=== PATIENT | male | born 1935 | race African-American/Black ===

== ENCOUNTER 2019-01-07 11:59 | Inpatient (IN) | payer OTHER ==
[~2019-01-07] VITALS: Ht 180.3 cm; Wt 68.0 kg
[~2019-01-07 11:59] MED LIST: ASPIRIN325 PO; ATIVAN0.5 MG PO; ATORVASTATIN CA40 MG PO; CARVEDILOL12.5 MG PO; DUONEB 2.5-0.5 M3 ML INH; FLOMAX0.4 MG PO; HALDOL5 MG/1 ML IM; KEPPRA 500 MG500 M1; KEPPRA 500 MG500 M1 PO; KLOR-CON 1010 MEQ PO; LEVAQUIN 500 M500 M1 PO; OSELB75 PO; TRAZODONE HCL50 MG PO; UNICOMPLEX M TA1 TA1 PO; VALPROIC ACID250 MG PO; ZOLOFT25 MG PO
[2019-01-07 12:18] VITALS: BP 131/80
--- NOTE | 2019-01-07 12:44 | NUR ---
PT. ARRIVED ON THE UNIT AT 11:40 THIS MORNING ON A GURNEY ACCOMPANIED BY 2 AMBULANCE DRIVERS. PT. FROM [facility]. REPORT CALLED TO THIS RN BY STAFF AT [facility]. PT. IS ALLERGIC TO CIPRO AND TB SERUM. PT. UNABLE TO ANSWER QUESTIONS HE IS PROFOUNDLY HARD OF HEARING AND COULD NOT UNDERSTAND QUESTIONING. PT. HAS A PMHX OF EPILEPSY, MDD, BIPOLAR, CHF, HTN, COPD, HYPERLIPIDEMIA, DECREASED COORDINATION. HE IS A 1:1 ASSIST AND A FALL RISK DUE TO HIS INCOORDINATION. PT. HAS BEEN
[2019-01-07 20:00] VITALS: BP 155/97
--- NOTE | 2019-01-08 00:18 | NUR ---
Family emergency contact number not correct in chart, not able to notify regarding seclusion. Nursing Gem Setter and pts nurse notified.
--- NOTE | 2019-01-08 00:25 | NUR ---
ASSUMED CARE @ 19:15 ON 01/07/19, IN DAY ROOM, AMBULATES TO OTHER LOCATIONS IN THE DAY ROOM PERIODOCALY. TOOK HS MEDS WITH THICKENED LIQUIDS. DRANK ENTIRE CARTON OF LIQUID OFFERED. AMBULATING INTO OTHER PATIENTS ROOM. DIFFICULT TO REDIRECT. [place] AND DOES NOT SEEM TO UNDERSTAND BY LOOKING AT SPEAKERS FACE WHEN SPOKEN TO.
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
[2019-01-08 01:34] VITALS: BP 155/97
--- NOTE | 2019-01-08 06:00 | NUR ---
6.4 HOURS OF SLEEP OVERNIGHT
--- NOTE | 2019-01-08 10:50 | NUR ---
IN ROOM SLEEPING SOUNDLY SINCE START OF SHIFT-NO RESPONSE TO VERBAL COMMANDS,QUES FROM STAFF-WILL RESPOND TO PAINFUL STIMULI-RESPIRATIONS EVEN/REGULAR. VS OBTAINED BP 112/68 P64 R-14 02 SAT 98 PERCENT. AM MEDS NOT ADMINISTERED D/T SEDATION -MD NOTIFIED OF ABOVE AND ON UNIT TO SEE PT-NO NEW ORDERS RECEIVED
--- NOTE | 2019-01-08 15:56 | NUR ---
EDGAR was contacted by pt's sister and guardian Radha Krause [phone] Who gave SW a brief history of pt. She also explained that [facility] Padilla is telling her that since she did not pay for the days he was gone, she has to get his things and he has to leave. EDGAR informed Radha that they have to give a formal 30 day notice. Radha said she was told that by the psych doctor and given a phone number to report the facility to. EDGAR was contacted by Venus Padilla who attempted to give her [facility]'s information because they sent a referral to that facility. EDGAR asked if it was still a requirement to give 30 day notice? The attendant responded that she is letting administration handle that, and that she is assisting with pt's discharge. EDGAR explained that she cannot contact [facility] because she has not been given permission to do so from the guardian. EDGAR completed an intake assessment for pt. SW team will continue to follow pt during his stay.
[2019-01-08 19:39] VITALS: BP 178/94
--- NOTE | 2019-01-09 | NUR ---
At shift change, 1844 the pt. was in the day room sitting beside staff, and he was notably having a seizure/thrashing about and his tongue very tremulous, and eyes rolled back in his head. It lasted about 1minute.Dr. Alexis notified and ordered Ativan 1 mg. IM x 1 now and it was given. YP=593/94, oxy 98% room air, p=100, resp. 16. He was placed into his bed with staff assist and the pt. had no longer seizing.
--- NOTE | 2019-01-09 00:22 | NUR ---
The pt. was noted at 2200 having a seizure again in his bed with tongue thrashing and eyes rolled back, it lasted about 1 minute and stopped. He was med.compliant with meds. crushed in nectar thickened liquid. Dr. Alexis notified and orderd a Keppra blood level. He refused VS recheck at med. pass time. He was notably also coughing intemittently non-productive moist sounding cough. No further seizures. He was compliant with VS at 2315 and was sleeping and coughing almost continous non-productive, wheezes upper lobes bilateral. km=271/105, r=99.7 F and R=18, p=106. Nurse Practioner notified.
[2019-01-09 00:28] VITALS: BP 184/105
--- NOTE | 2019-01-09 01:02 | NUR ---
Order received for CXR in the morning and diet changed to pureed, nectar thick liquids.
[2019-01-09 06:24] VITALS: BP 151/80
[2019-01-09 09:02] VITALS: BP 132/68
[2019-01-09 09:04] VITALS: BP 156/88
--- NOTE | 2019-01-09 09:32 | NUR ---
RESISTIVE WITH TAKING AM MEDS-LIQUID KEPPRA MIXED WITH NECTAR THICK JUICE AND DID INITALLY TAKE 1-2 SWALLOWS BEFORE TIGHTLY CLOSING MOUTH AND REFUSING TO SWALLOW-SPITTING OUT MED AND JUICE.CLOSES EYES TIGHTLY-ATTEMPTED TO WRITE OUT REQUEST TO TAKE IS HIS SEIZURE MEDICATION-RAISES HAND IF TO STRIKE STAFF. DID AFTER APPROX APPROX 1 1/2 HOUR OF REAPPROACH APPEAR TO SWALLOW ALL OF JUICE. IMPULSIVE ATTEMPTING TO STAND UP ON OWN
--- NOTE | 2019-01-09 13:59 | NUR ---
HAS BEEN SOMULENT IN RECLINER IN DAYROOM-UNABLE TO BE ROUSED FOR SPEECH EVAL-DEEP,LOOSE NONPRODUCTIVE COUGH CZEAC-[id number]. DID ATTEMPT TO GET UP ON OWN X 1 -VERY HIGH FALLS RISK
--- NOTE | 2019-01-09 14:01 | NUR ---
EDGAR received a vm from Radha Krause asking her to fax a referral to [facility] for pt. EDGAR contacted [place] and received their fax number. EDGAR faxed a referral to [facility] at [phone]. EDGAR contacted Radha and provided an update. EDGAR team will continue to follow pt during his stay.
[2019-01-09 19:35] VITALS: BP 119/75
--- NOTE | 2019-01-10 04:40 | NUR ---
1909-Report received from day shift nurse and care assumed. The pt. was in bed and was alert and awake and restless at times. He had a bright affect during assessment with good eye contact. He was med. compliant and slept soundly for most of the nite, but awakened early this morning. Fall precautions and seizure precautions in place.
[2019-01-10 06:07] LABS: CALCIUM 9.5 mg/dL (8.5-10.1); CREATININE 0.8 mg/dL (0.7-1.3); POTASSIUM 4.3 mmol/L (3.5-5.1)
[2019-01-10 07:08] LABS: HEMATOCRIT 34.4 % (42.0-52.0); HEMOGLOBIN 11.3 gm/dL (14.0-18.0); MCH 30.5 pg (26.0-34.0); MCHC 32.9 g/dL (28.0-37.0); MCV 92.8 fL (80.0-100.0); RBC 3.71 mil/uL (4.50-6.00); RDW 14.9 % (10.5-14.5); WBC 7.8 thou/uL (4.0-11.0)
[2019-01-10 08:00] VITALS: BP 124/75
--- NOTE | 2019-01-10 08:10 | NUR ---
HELPED ASSISTED PT TO RECLINER CHAIR. PT BRIEF WAS WET IN BED. PT WAS ABLE TO STAND AND HELP PIVOT. PT LUNGS SOUNDED CLEAR, DIMINISHED IN BASES. PT SMILES AT NURSES, PT UNABLE TO HEAR. PT ABLE TO READ. PT HIS LEFT EYELID IS SWOLLEN, AND SCAB TO LEFT SIDE OF IT. PT NEEDED HELP WITH FEEDING AND TOOK MEDS WITHOUT RESISTANCE.
[2019-01-10 08:28] VITALS: BP 124/75
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
[2019-01-10 20:34] VITALS: BP 86/46
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
--- NOTE | 2019-01-11 12:54 | NUR ---
HAS BEEN IN DAYROOM SITTING IN W/C, HE IS ALERT AND RESPONDS AFTER YOU YELL IN HIS EAR, HE IS VERY [place], HE TOOK MEDS CRUSHED, BUT ATTEMPTS MADE TO GET HIM TO SWALLOW KEPPRA WITHOUT SUCCESS, HE IS A FEEDER TODAY AND EATS WELL. NO BEHAVIORAL ISSUES NOTED TODAY. wILL CONTINUE TO MONITOR FOR BEHAVIORS AND SAFETY.
[2019-01-11 15:19] VITALS: BP 101/60
[2019-01-11 20:00] VITALS: BP 148/70
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
--- NOTE | 2019-01-11 23:51 | NUR ---
ASSUMED CARE FROM DAY SHIFT PT RESTING IN BED , VOICED NO CONCERNS , NON VERBAL WHEN ATTEMPTED TO TALK TO PT ,. PO MEDICATION TAKEN BUT PT STARTED SPITTING HALF OF THE MEDICATION OUT. PT RESTING WELL THROUGHOUT FREQ ROUNDING, BED ALARM ON FOR SAFETY WILL CONTINUE WITH CURRENT PLAN OF CARE. AND WILL REPORT CHANGES.
[2019-01-12 09:03] VITALS: BP 119/68
--- NOTE | 2019-01-12 10:45 | NUR ---
HAS BEEN UP IN DAYROOM IN W/C, HE IS ALERT AND CHEERFUL, NO AGITATION NOTED THIS A.M. HE IS COMPLIANT WITH HIS MEDICATION THIS MORNING, HE HAS EATEN WELL WITH ASSISTANCE, ENCOURAGING FLUIDS. VERY [facility], BUT DOES RESPOND WHEN YOU SPEAK DIRECTLY IN HIS RIGHT EAR, IT WAS NOTED HE HAS A NODULE ON HIS LEFT EYELID, DID NOT NOTE ANY DRAINAGE OR REDNESS AT THIS POINT, CONTINUE TO ASSIST NEEDED, MONITOR FOR BEHAVIORS AND SAFETY ISSUES.
[2019-01-12 19:49] VITALS: BP 104/66
[2019-01-12 22:54] VITALS: BP 104/66
--- NOTE | 2019-01-12 22:59 | NUR ---
PATIENT CALM AND COOPERATIVE TONIGHT. HE SAT UP IN DINING ROOM WITH OTHERS WATCHING THE FOOT BALL GAME. HE SMILED WHEN I GREETED HIM. HE DENIES PAIN. HE'S VERY NOME. PATIENT TOOK HIS MEDS CRUSHED IN PUDDING AND HIS KEPPRA IN THICKENED LEMON WATER WITHOUT A PROBLEM. PATIENT ATE ICE CREAM ALSO FOR HS SNACK. PATIENT COMMUNICATED HE WAS SLEEPY. PATIENT IN BED NOW. HE IS COMPLIANT WITH CARES. PATIENT'S BRIEF DRY AND INTACT. BED IN LOW POSITION AND BED ALARM ON. WILL CONTINUE TO MONITOR.
[2019-01-13 08:09] VITALS: BP 119/61
[2019-01-13 10:57] VITALS: BP 119/61
--- NOTE | 2019-01-13 12:35 | NUR ---
EDGAR received a phone call from Radha asking her to return her call; Radha asked when pt can be d/c. EDGAR explained that he could today. EDGAR asked if they had heard from [facility] and she said she had; pt was denied. EDGAR encouraged Radha to contact [facility] and remind them that Medicaid pays for pt to be there so a formal 30 day notice needs to occur. She said she will. [facility] contacted EDGAR and explained that they believe pt needs an all male unit; which they do not have. SW team will continue to follow pt during his stay.
--- NOTE | 2019-01-13 13:40 | NUR ---
EDGAR received a call from Radha who said [facility] gave pt's bed away. EDGAR team contacted Ayesha with [facility] and inquired if pt can return. She said they offered pt's family a fee to hold his bed while he was gone, and they did not so they gave away his bed to 2 women. They said at this time they do not have a bed available for males. EDGAR provided this update to Radha. She admitted at this point she would not want her brother returning to that facility because she cannot ensure they will treat him fairly. She mentioned wanting to tour [facility] of tomorrow morning. If she likes it she would like EDGAR to send a referral to that facility. EDGAR team will continue to follow pt.
--- NOTE | 2019-01-13 14:55 | NUR ---
THE PATIENT HAS BEEN COOPERATIVE WITH HEALTH CARE AND COMPLIANT WITH MEDICATIONS. HE IS DEAF BUT HE RESPONDS TO GESTURES AND SIGNS. THE PATIENT IS INCONTINENT. HE IS IN A WC AND HAS A LAP CHRIS ON. THE PATIENT AMBULATED WITH PT TODAY AND HIS REPORT WAS VERY GOOD. HE WALKED THE FURTHEST EVER, THE PT SAID. HE HAS BEEN ALER, CALM AND QUIET. HE HAS BEEN SITTING IN THE DAY ROOM MOST OF THE DAY AND HAS BEEN EATING HIS MEALS.
[2019-01-13 20:08] VITALS: BP 108/58
[2019-01-13 23:20] VITALS: BP 108/58
--- NOTE | 2019-01-14 03:26 | NUR ---
PT OUT IN DAYROOM EARLY IN SHIFT. AFTER EVENING SNACK AND MEDS, ESCORTED TO ROOM AND ASSISTED TO BED. REFUSED TO STAY IN BED AND BECAME THREATENING TO STAFF. DECIDED THAT HE DID NOT WANT TO BE IN ROOM AND WAS ESCORTED BACK TO DAYROOM. AT THIS TIME, PT SITTING IN CHAIR WITH LAP CHRIS, SLEEPING.
[2019-01-14 09:04] VITALS: BP 142/74
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
[2019-01-14 10:12] VITALS: BP 142/74
--- NOTE | 2019-01-14 12:35 | NUR ---
Date of Admission: 01/07/19 Date of Activity Therapy Assessment: 01/10/19 Activity Goal: Increase engagement Initial Goal: 1 Group activity/day Weekly progress towards goal: On track Group participation level: Needs some assistance Behaviors observed: Patient has shown inconsistent participation with activity participation primarily r/t to his alertness level, though his hearing impairment does hinder his ability to benefit greatly from groups. When present for activity participation, patient has not exhibited aggressive or sexually inappropriate behavior. Plan: No change towards goal
--- NOTE | 2019-01-14 16:32 | NUR ---
THE PATIENT HAS BEEN SITTING IN THE DAY ROOM THROUGH OUT THE DAY. HE IS IN A WC WITH A LAP CHRIS. HE IS WRAPPED IN A COUPLE OF BLANKETS BECAUSE HE IS COLD. HE DID NOT EAT ANY BREAKFAST EXCEPT FOR ENSURE. ALSO HE DID NOT WANT ANY OF HIS LUNCH. HE IS ALERT. HE IS DEAF BUT HE RESPONDS TO GESTURES AND SIGNALS BY HAND. VALPROIC ACID RANGE IS 75. HE HAS BEEN COMPLIANT WITH MEDICATIONS AND HAS BEEN COOPERATIVE WITH HIS HEALTH CARE NEEDS. HE HAS BEEN QUIET AND CALM THROUGH OUT THE DAY.
--- NOTE | 2019-01-14 17:09 | NUR ---
EDGAR received a vm from Radha Krause asking EDGAR to fax a referral to [facility] . EDGAR faxed a referral to of for pt. SW team will continue to follow pt during his stay.
--- NOTE | 2019-01-14 17:11 | NUR ---
EDGAR was asked pt the psych doctor to contact pt's son Ramesh in an attempt to get into contact with [facility]. EDGAR and psych doctor contacted Ramesh at [phone]. Ramesh said he is the DPOA and will email the document to SW email. He also said he will be in regular contact with facility for his father's care. SW team will continue to follow pt during his stay.
[2019-01-14 20:16] VITALS: BP 119/68
--- NOTE | 2019-01-15 05:21 | NUR ---
1909-Report received from day shift nurse and care assumed. He was sitting in the day area around staff and peers with a big smile mostly in the evening. He was compliant with VS which were wnl and his HS meds. crushed and placed in honey thickened liquids. He was assisted to his room but he awakened soon afterwards and set the alarm off fast and was found standing up when staff arrived. He was not evidently sleepy so was taken for safety into the day room in a chair were he was comfortable but not sleeping tonite. He slept only 0.5 hours tonight.
--- NOTE | 2019-01-15 12:57 | NUR ---
EDGAR contacted [facility] [place] to inquire about the referral she sent yesterday. EDGAR spoke with Rosalia who said her and her team are discussing the referral and will call back by end of day with a response. EDGAR team will continue to follow pt during his stay.
--- NOTE | 2019-01-15 14:39 | NUR ---
UP FOR ACTIVITIES THIS AM- SOMULENT AFTER LUNCH FALLING ASLEEP IN CHAIR AND SLIDING DOWN IN CHAIR-UNABLE TO PARTICIPATE IN GROUP D/T SEDATION-PLACES IN BED WITH ASSIST OF 2 STAFF AT APPROX-1300 AND HAS BEEN SLEEPING SOUNDLY-DEEP SNORING RESPIRATIONS NOTED. VS STABLE-DENIES S/O PAIN-INITALLY RESISITVE WITH AM MEDS BUT DID TAKE AFTER APPROX 45 MINUTES OF REPEATED APPROACH-MEDS CRUSHED AND WITH PUDDING AND LIQUID KEPPRA MIXED WITH PUDDING. INCONTINENT OF LARGE LOOSE BM THIS AM-MILDLY RESISITIVE WITH BRIEF CHANGE-[facility]IC[facility] PROVIDED-PUSHING STAFF AWAY
[2019-01-15 18:27] LABS: HEMATOCRIT 36.7 % (42.0-52.0); HEMOGLOBIN 11.7 gm/dL (14.0-18.0); MCH 30.9 pg (26.0-34.0); MCHC 31.7 g/dL (28.0-37.0); MCV 97.4 fL (80.0-100.0); RBC 3.77 mil/uL (4.50-6.00); RDW 15.6 % (10.5-14.5)
[2019-01-15 18:38] LABS: CALCIUM 9.6 mg/dL (8.5-10.1); POTASSIUM 4.1 mmol/L (3.5-5.1)
[2019-01-15 21:05] VITALS: BP 127/65
--- NOTE | 2019-01-16 05:37 | NUR ---
1909-Report received from day shift nurse and care assumed. Donavon was sitting in the day area smiling at others. He was med. compliant with HS meds. He was sleepy and was taken to his room. He later awakened with alarm set off and stood up with staff present and with assist walked to the bathroom. He sat in the day area again for several hours, and began talking loudly to himself while smiling. He went to his room later when was sleepy again. He slept 3.8 hours thus far and is sleeping soundly at this time with fall and seizure precautions in place.
[2019-01-16 07:00] VITALS: BP 120/54
[2019-01-16 07:36] LABS: URINE BILIRUBIN NEGATIVE (Negative); URINE BLOOD 2+ (Negative); URINE CLARITY CLOUDY; URINE COLOR YELLOW; URINE GLUCOSE-RANDOM* NEGATIVE (Negative); URINE KETONES NEGATIVE (Negative); URINE LEUKOCYTES 1+ (Negative); URINE NITRITE NEGATIVE (Negative); URINE PROTEIN (DIPSTICK) TRACE (Negative)
[2019-01-16 08:41] LABS: AMORPHOUS URATES Moderate /LPF (None Seen); SQUAMOUS 0-3 Few /LPF (0-3)
[2019-01-16 08:42] LABS: CASTS None Seen /LPF (None Seen); URINE WBC 6-15 Few /HPF (0-5)
--- NOTE | 2019-01-16 11:04 | NUR ---
0700 Report received from overnight shift, Patient has een restless did not sleep well last night. Patient tried to hit and use legs when staff was getting him dressed for breakfast. Patient was hesitant to take medication this morning; but finally took the medication. He does not participate in groups. Patient tries to take socks off, patient is calm cooperative most of shift.
[2019-01-16 11:10] VITALS: BP 120/54
--- NOTE | 2019-01-16 11:19 | NUR ---
SW received a call from Kellen with [facility]; she denied pt's referral at this time stating his behaviors are too much for the facility. EDGAR contacted Radha Krause and provided an update. She talked with her about a behavioral unit called [facility] in [place] and asked if that was an option. Radha said it would be a drive that she couldn't make every day to see pt, however, she would like a referral to be sent their because she needs help with placement. EDGAR spoke with Julia with [facility] and provided a brief synopsis of pt's situation She asked that SW fax a referral. SW faxed a referral to [facility] [phone]. SW team will continue to follow pt during his stay.
[2019-01-16 13:56] VITALS: BP 120/54
--- NOTE | 2019-01-16 15:22 | NUR ---
1300 Dr Agustin ordered IV Fluid for patient for dehydration. Patient was stuck 6 times and patient received 500 ml of fluid. Patients IV infiltrated and the Physician called to let her know of the situation. The Iv order is discontinued and she wants me to try to get patient to drink as much water as possible. [facility] ordered for 01/17/2019. 1300 Dr Agustin ordered IV Fluids for patient for patient due to dehydration. Patient was stuck 6 times to start IV,
[2019-01-16 20:11] VITALS: BP 117/63
--- NOTE | 2019-01-17 03:37 | NUR ---
PT OUT IN DAY ROOM AT START OF EVENING. ATER SNACKS, PT TOOK HS MEDS WITH PUDDING, CRUSHED. ASSISTED TO ROOM AT 2100, AND WENT TO BED W/O PROBLEM. HAS SLEPT WELL THROUGH THE NIGHT TO THIS POINT IN THE AM.
[2019-01-17 05:23] LABS: CREATININE 1.1 mg/dL (0.7-1.3); POTASSIUM 3.4 mmol/L (3.5-5.1)
[2019-01-17 07:00] VITALS: BP 109/61
[2019-01-17 09:41] VITALS: BP 109/61
--- NOTE | 2019-01-17 09:53 | NUR ---
0700 Report received from overnight shift, Patient cooperative calm took medication without incidence. patient's affect is brighter, patient had IV fluid's 01/16/2019 of D5W for dehydration. Patient ate 95% of his breakfast. we will contiune tp push fluids.
[2019-01-17 11:01] VITALS: BP 109/61
--- NOTE | 2019-01-17 12:39 | NUR ---
Assess for length of stay. Admit to [facility] for neurocognitive disorder. ST follows pt and requires modified diet of puree with honey thick liquids. Had brief period of decreased intake and required some IVF for dehydration. Now eating >85% meals and fluids are encouraged. No wt hx is available. Presents low nutrition risk at this time
--- NOTE | 2019-01-17 15:04 | NUR ---
EDGAR spoke with Julia with [facility] who said they are unable to accept pt at this time. Pt's KAREN Garcia and his niece came to visit. Again they expressed their upset about [facility] not taking pt back. EDGAR talked with her supervisor roller shop about [facility] giving away pt's bed and gave her contact info for surgical assistant certified and the motion picture scene builder. EDGAR contacted [facility] management via email and asked if they can assist with placement of this pt. EDGAR team will continue to follow pt during his stay.
[2019-01-17 20:18] VITALS: BP 123/56
[2019-01-17 23:47] VITALS: BP 123/56
--- NOTE | 2019-01-18 02:59 | NUR ---
PT IN BED RESTING AT BEGINNING OF SHIFT. ALLOWED STAFF TO DO PHYSICAL ASSESSMENT. NO-VERBAL BUT RELAXED AND COOPERATIVE. TOOK HS MEDS CRUSHED WITH PUDDING. INCONTINANT X1 AT 0200. BM AND URINE. CLEANED AND RETURNED TO FRESH BED, AND IS CURRENTLY SLEEPING.
[2019-01-18 07:00] VITALS: BP 118/65
[2019-01-18 08:00] VITALS: BP 118/65
--- NOTE | 2019-01-18 08:44 | NUR ---
PT SITTING UP IN DAY ROOM. PT TOOK LIQUID MED IN THICKEN ORANGE JUICE. PT SWALLOWED WITHOUT COUGHING. PT NEEDED FED FOR BREAKFAST. PT DID SAY WHAT IS HAPPINING. PT HANDS ARE SHAKING AFTER MED PASS. PT SMILES AT STAFF. PT IS DEAF.
--- NOTE | 2019-01-18 16:13 | NUR ---
PT HAS BEEN UP IN W/C MOST OF DAY, PT CHANGED AND HAD SOFT BROWN/GREEN BM.
[2019-01-18 20:48] VITALS: BP 139/59
[2019-01-18 23:38] VITALS: BP 139/59
--- NOTE | 2019-01-18 23:41 | NUR ---
PATIENT SAT UP IN WC IN DR MONTEIRO WHEN THIS NURSE CAME ON. HE WOULD SLEEP OFF AND ON WHILE SITTING WATCHING TV. HE TOOK HIS HS MEDS WITH PUDDING TONIGHT AND WITHOUT A FIGHT. HE HAS BEEN RELAXED AND DROWSY. HE HAD CONGESTED COUGH AFTER TAKING MEDS. HIS LUNGS DIMINISHED. PATIENT IS INCONTINENT OF BOWEL AND BLADDER. PATIENT HELPED TO BED AND CLEANED UP AT AROUND 2200 TONIGHT. PLACED HOB SLIGHTLY UP D/T PREVIOUS COUGH. PATIENT DROOLING MORE HE SLEPT. MONITORING CLOSELY. BED ALARM ON AND BED IN LOW POSITION. ELEVATED FOB SLIGHTLY TOO.
--- NOTE | 2019-01-19 06:32 | NUR ---
PATIENT SLEPT THRU THE NIGHT. NO MORE COUGHING OR DROOLING SINCE WENT TO BED. PATIENT CONTINUES TO HAVE YELLOW DRAINAGE THAT FORMS IN THE CORNER OF HIS LEFT EYE. NO MATTING OR REDNESS TO THE EYE. PATIENT HATES IT WHEN WE WIPE AWAY THE DRAINAGE OR WASH HIS FACE. DENIES PAIN THIS MORNING. CONTINUING TO MONITOR.
[2019-01-19 08:00] VITALS: BP 117/58
--- NOTE | 2019-01-19 08:00 | NUR ---
PT SITTING OUT IN DAY ROOM IN W/C. PT NEEDED TO BE FED. PT NON-VERBAL EXCEPT FOR A FEW SOUNDS. PT ON THICKENED LIQUIDS. PT LUNGS CLEAR. PT HAS SMALL COUGH AT TIMES. PT SMILES AT NURSES.
[2019-01-19 08:29] VITALS: BP 117/58
--- NOTE | 2019-01-19 08:30 | NUR ---
PT ATE 100% OF BREAKFAST THIS AM. PT LOOKS ALERT AND TOLERATING DIET.
--- NOTE | 2019-01-19 09:00 | NUR ---
PT NOT ABLE TO PARTICIPATE IN GROUP DUE TO BEING DEAF. PT REST IN CHAIR WITH HEAD DOWN.
[2019-01-19 20:19] VITALS: BP 120/64
[2019-01-19 23:36] VITALS: BP 120/64
--- NOTE | 2019-01-19 23:48 | NUR ---
PATIENT SITTING UP IN SLEEPING WHEN THIS NURSE CAME ON SHIFT TONIGHT. HE OPENED HIS EYES AND SMILED BRIEFLY WHEN I WENT TO SPEAK WITH HIM. HE IS DEAF. PATIENT TAKES IN HONEY THICK LIQUIDS WITH MEALS AND MEDS. PATIENT TOOK HIS KEPPRA LIQUID IN THICKENED APPLEJUICE. HE HAD HIS OTHER MEDS CRUSHED IN PUDDING. PATIENT SEEMS MORE LETHARGIC TONIGHT. HE DRANK FINE BUT HAD TO SHAKE AND DO STERNUM RUB TO GET HIM AWAKE TO TAKE IN PUDDING. PATIENT'S VSS ARE WNL AND NO FEVER. HARD TO HEAR LUNG SOUNDS D/T DOESN'T HEAR DIRECTIONS OR FOLLOW DIRECTIONS ON TAKING IN DEEP BREATHS. LUNG SOUNDS ARE DIMINISHED. CONCERNED ABOUT POSSIBLE ASPIRATION PNEUMONIA D/T MORE SLEEPY/SEDATED WITH OCCASIONAL COUGH. PATIENT CONTINUES TO HAVE YELLOW DRAINAGE IN LEFT EYE AND TONIGHT APPEARS TO BE MATTING. RECEIVED REPORT FROM DAY SHIFT THAT DR MCNIELL WAS GOING TO LOOK AT EYE AND DETERMINE IF NEEDS MEDS. PATIENT TAKEN TO BED WITH ASSIST X 2. HOB UP SLIGHTLY. NO COUGHING SINCE LAID DOWN. PATIENT MORE WEAK WHEN STANDING TO HELP WITH CARES. BED ALARM ON AND BED IN LOW POSITION.
--- NOTE | 2019-01-20 06:47 | NUR ---
PATIENT COMBATIVE AND VOCAL WITH CARES THIS MORNING. HE IS MORE AWAKE AND ALERT. LEFT EYE IS GUNKY WITH YELLOW DRAINAGE AND MATTING. EYE CLEANED WITH WARM WASH CLOTH. NO COUGH THIS MORNING. SEEMS TO HAVE MORE ENERGY TODAY.
--- NOTE | 2019-01-20 11:00 | NUR ---
SW and psych talked with pt's KAREN Radha about pt being DNR. Radha said she does not want DNR and that she would like everything to be done to save pt if he should go into cardiac arrest. She also does not want comfort care to begin. She said that she has called several places this morning and is awaiting phone calls. She will call SW as she chooses [facility] options. SW team will continue to follow pt during his stay.
[2019-01-20 11:51] VITALS: BP 114/66
--- NOTE | 2019-01-20 12:05 | NUR ---
WAS RESISITVE WITH TAKING ALL OF AM MEDS-TOOK KEPPRA LIQUID AND STARTED TO TAKE IRON BUT BEGAN TO SPIT OUT CORRECTION THROUGH-AND CLOSED MOUTH THIGHTLY WHEN APPROACHED WITH DEPAKOTE SPRINKLES IN YOGURT-REAPPROACHED APPROX 20 MINUTES LATER AND DID TAKE ALL OF DEPAKOTE SPRINKLES. NO-VERBAL WHEN BECOMES RESISTANT WILL PUSH STAFFS HANDS AWAY AND HAVE ANGRY,TENSE FACIAL EXPRESSION. EYE IS NOTED TO BE REDDENED-DR. SHELLEY NOTIFIED AND ORDERS RECEIVED.
--- NOTE | 2019-01-20 15:29 | NUR ---
Julia with [facility] contacted EDGAR and asked for background information. She said she is considering admission and would like to do a visit tomorrow 01/21. EDGAR will continue to follow pt during his stay.
[2019-01-20 19:55] VITALS: BP 123/60
[2019-01-20 22:15] VITALS: BP 123/60
--- NOTE | 2019-01-21 03:29 | NUR ---
PT OUT IN DAY AREA EARLY IN SHIFT. BLUNTED AFFECT. COOPERATIVE. ESCORTED TO ROOM AND TO BED W/O INCIDENT. PT REFUSED HS MEDS WITH PUDDING,AND BECAME COMBATIVE. EVENTUALLY SETTLED AND ALLOWED RN TO INSTILL SCHEDULED EYE GTTS. HAS SLEPT WELL TO THIS POINT IN THE AM. WILL ATTEMP TO STRAIGHT CATH PT FOR UA IN EARLY AM.
[2019-01-21 06:37] LABS: CALCIUM 10.2 mg/dL (8.5-10.1); CREATININE 1.1 mg/dL (0.7-1.3); POTASSIUM 3.3 mmol/L (3.5-5.1)
[2019-01-21 07:28] LABS: URINE BLOOD 3+ (Negative); URINE GLUCOSE-RANDOM* NEGATIVE (Negative); URINE KETONES NEGATIVE (Negative); URINE PROTEIN (DIPSTICK) 2+ (Negative)
[2019-01-21 07:29] LABS: URINE BILIRUBIN NEGATIVE (Negative); URINE CLARITY HAZY; URINE COLOR BROWN; URINE LEUKOCYTES-REFLEX 2+ (Negative); URINE NITRITE-REFLEX POSITIVE (Negative)
[2019-01-21 07:30] LABS: ICTOTEST (BILI CONFIRMATORY) Negative (Negative)
[2019-01-21 07:42] LABS: CASTS None Seen /LPF (None Seen); MUCUS 4-6 Moderate strn/LPF (None Seen); SQUAMOUS 0-3 Few /LPF (0-3)
[2019-01-21 07:43] LABS: BACTERIA-REFLEX >30 Many /HPF (None Seen); CRYSTALS None Seen /LPF (None Seen); URINE RBC >20 Many /HPF (0-2); URINE WBC-REFLEX >25 Many /HPF (0-5)
[2019-01-21 09:18] VITALS: BP 109/66
--- NOTE | 2019-01-21 09:28 | NUR ---
ASSUMED CARE AT 0700 TODAY. PT. SITTING QUIETLY IN A W/C IN THE DINING ROOM. HE AT PART OF HIS BREAKFAST, REFUSED HIS MORNING MEDICATIONS. DR. SHELLEY INFORMED OF SAME. NO NEW ORDERS RECEIVED. HE WAS ON THE PERIPHERY OF THE MORNING MEETING BUT DUE TO BEING DEAF, WAS UNABLE TO PARTICIPATE. HE WAS MAKING NOISES THAT ARE ININTELLIGABLE. HE WAS GIVEN A BLANKET HE WAS COLD. NO ACTING OUT BEHAVIORS NOTED. UNABLE TO ASSESS SI/HI OR AVH.
[2019-01-21 09:37] VITALS: BP 109/66
--- NOTE | 2019-01-21 12:55 | NUR ---
EDGAR received a call from pt's DPOA Radha Jimi stating she has elected to take pt home with hospice. She said she will transport him 01/22 @11am. She said the hospice company should be calling. EDGAR received a call form Maame Maddox with [facility] requesting documents such as pt's med list, H&P, and hospice order. EDGAR provided an update to psych doctor who said he was okay with this plan. EDGAR faxed requested info to Maame. EDGAR informed Julia with [facility] of pt's family plans. EDGAR team will continue to follow pt during his stay.
[2019-01-21 14:02] VITALS: BP 109/66
--- NOTE | 2019-01-21 14:23 | NUR ---
Date of Admission: 01/07/19 Date of Activity Therapy Assessment: 01/10/19 Activity Goal: Increase engagement Initial Goal: 1 Group activity/day Weekly progress towards goal: On track Group participation level: Needs some assistance Behaviors observed: Patient's participation continues to be limited at this time though patient is typically passively present for one group per day. Patient does not exhibit aggressive or sexually inappropriate behavior during activity. Plan: No change towards goal
[2019-01-21 23:34] VITALS: BP 128/62
--- NOTE | 2019-01-22 05:36 | NUR ---
1909-Report received from day shift nurse and care assumed. The pt. was underactive, opened his eyes to questions, quiet and rested thru the nite. Incontinence care done as the pt. had several inconinent of urine times in the nite. At HS med. time his meds.were crushed and put in pudding, but he spit them out, except for the liquid Keppra.
[2019-01-22 09:29] VITALS: BP 134/81
[2019-01-22 10:49] VITALS: BP 134/81
--- NOTE | 2019-01-22 11:07 | NUR ---
EDGAR emailed pt's DPOA Radha Krause information for the [facility] Waiver through Medicaid. SW team will continue to follow pt during his stay.
--- NOTE | 2019-01-22 12:37 | NUR ---
PT NEEDED TO BE HELD FOR IM INJECTION ON ANTIBIOTIC. WROTE A NOTE TO PATIENT TELLING HIM ABOUT THE INJECTION AND PT POINTED AT ARM BAND AND THEN SWUNG AT NURSE. NURSE HAD ALREADY SCANNED ARMBAND.
--- NOTE | 2019-01-22 15:16 | NUR ---
0700 Nurse assumed care of the pt. Patient calm and sleepy but easily arousable. 0910 Pt had breakfast and his morning medication. He hesitated for a minute but he agreed to take. 1400 Pt had lunch. pericare done. Pt swang his hand towards to the nurse after he was explained about the IM injection for the antibiotic. Held him during IM and eye drop administration. 1500 Calm this afternoon. Will continue with plan of care.
[2019-01-22 19:59] VITALS: BP 123/69
--- NOTE | 2019-01-23 06:01 | NUR ---
1909- Report received from day shift nurse and care assumed last evening. He was alert and in the day area sitting, drank a full 240CC juice and ate full pudding, was compliant with meds. crushed put in chocolate pudding. He had medium bowel movement soft/form tonite. Flat affect, refused his eye drops also. He was not aggressive with cares and is up this morning to the day room. He slept 9 hrs.
[2019-01-23 09:24] VITALS: BP 117/71
[2019-01-23] MEDS ORDERED: FLOMAX0.4 MG PO (09:24)
[2019-01-23] MEDS ORDERED: DEPAKOTE SPRIN125 MG PO (09:28)
[2019-01-23] MEDS ORDERED: ZONISAMIDE 100100 M1 PO (09:29)
[2019-01-23] MEDS ORDERED: LEVETIRACE100 MG/1 M PO (09:29)
[2019-01-23] MEDS ORDERED: TRIMETHOPRIM /P10 M1 OPHTHALMIC (09:31)
[2019-01-23] MEDS ORDERED: SENNA-TIME S T1 EACH PO (09:31)
--- NOTE | 2019-01-23 13:47 | NUR ---
Alert, sitting in wheel chair with lap joshua in place. Obeys simple commands (opens mouth, stands up with assistance) but very little verbalization except when angry about having to take meds. Then verbalized refusal with profanity and clenched teeth but remained otherwise calm. No verbalizations of SI/HI, pain. Pt. reapproached approximately 30 min later and then was able to take medication without difficulty with chocolate pudding ensure. Breath sounds clear t/o, bilaterally equal and slightly diminished in lower lobes. No s/o resp distress. Color pink with brisk capillary refill and palpable peripheral pulses. Regular HR auscultated. Active bowel sounds over soft, flat abdomen. Able to stand with assistance and staff and walker. 1120 Discharge instructions given to daughter and sister. Appropriate questions and concerns. To daughter's van per WC, put in back seat with assistance of staff and sister.
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
== END 2019-01-23 11:30 | disposition hospice, home (50) | DRG 884 ==
LOC: SBH
PROVIDERS: Hospitalist; Internal Medicine; ADMIT Psychiatry & Neurology Psychiatry
DX: F01.51 Vascular dementia, unspecified severity, with behavioral disturbance (principal); E87.0 Hyperosmolality and hypernatremia; J98.11 Atelectasis; F02.81 Dementia in other diseases classified elsewhere, unspecified severity, with behavioral disturbance; R29.6 Repeated falls; K59.09 Other constipation; G40.909 Epilepsy, unspecified, not intractable, without status epilepticus; D63.8 Anemia in other chronic diseases classified elsewhere; Z51.5 Encounter for palliative care; N40.0 Benign prostatic hyperplasia without lower urinary tract symptoms; Z87.891 Personal history of nicotine dependence; F63.9 Impulse disorder, unspecified; J44.9 Chronic obstructive pulmonary disease, unspecified; Z66 Do not resuscitate; R13.10 Dysphagia, unspecified; F41.9 Anxiety disorder, unspecified; F32.9 Major depressive disorder, single episode, unspecified; E87.8 Other disorders of electrolyte and fluid balance, not elsewhere classified; E86.0 Dehydration; I11.0 Hypertensive heart disease with heart failure; E78.5 Hyperlipidemia, unspecified; Z90.2 Acquired absence of lung [part of]; Z79.899 Other long term (current) drug therapy; Z23 Encounter for immunization
CPT/HCPCS: 10880